=== PATIENT | male | born 1955 | race Caucasian/White ===

== ENCOUNTER 2017-04-14 17:35 | Emergency (ER) | payer BC ==
[~2017-04-14] VITALS: Ht 188 cm; Wt 93.2 kg
[~2017-04-14 17:35] MED LIST: NEXIUM 20MG CAP20 MG PO; VERAPAMIL240 MG PO
[2017-04-14 17:39] VITALS: TEMP 97.6
[2017-04-14 18:47] LABS: BASO # 0.1 (0.0-0.2); BASO % 0.6 % (0.0-2.0); EOS # 0.2 (0.0-0.7); EOS % 1.7 % (0-4.0); GRAN # 6.2 (1.4-6.5); GRAN % 72.7 % (42.2-75.2); HEMATOCRIT 41.8 % (42.0-52.0); HEMOGLOBIN 14.7 g/dl (13.5-18.0); LYMPH # 1.5 (1.2-3.4); LYMPH % 17.1 % (20.0-51.0); MEAN CELL VOLUME 86 fl (80.0-100.0); MEAN CORPUSCULAR HEMOGLOBIN 30 pg (27.0-31.0); MEAN CORPUSCULAR HGB CONC 35 g/dl (33.0-37.0); MEAN PLATELET VOLUME 10.9 fl (7.4-10.4); MONO # 0.7 (0.1-0.6); MONO % 7.6 % (1.7-9.3); PLATELET COUNT 203 K/mm3 (130-400); RED BLOOD COUNT 4.86 M/mm3 (4.20-5.60); REDCELL DISTRIBUTION WIDTH-CV 12.3 % (11.5-14.5); WHITE BLOOD COUNT 8.6 K/mm3 (4.8-10.8)
[2017-04-14 18:53] LABS: ANION GAP 10 mmol/L (7-16); BLOOD UREA NITROGEN 14 mg/dL (9-20); CARBON DIOXIDE 23 mmol/L (22-30); CHLORIDE 104 mmol/L (98-107); CREATININE, serum 0.84 mg/dL (0.66-1.25); GLUCOSE 91 mg/dL (74-106); POTASSIUM 3.8 mmol/L (3.4-5.0); SODIUM 136 mmol/L (137-145)
[2017-04-14 19:07] LABS: TROPONIN-I < 0.012 ng/mL (0.000-0.034)
[2017-04-14] MEDS ORDERED: VERELAN240 MG PO (20:38)
[2017-04-14] MEDS ORDERED: SINEMET 25/101 UDTAB PO (20:40)
[2017-04-14] MEDS ORDERED: LEXAPRO 5MG5 MG PO (20:42)
[2017-04-14] MEDS ORDERED: REVATIO20 MG PO (20:42)
[2017-04-14 21:37] VITALS: BP 170/75; PULSE 62
== END 2017-04-14 21:15 | disposition short-term general hospital (02) ==
LOC: COL.ER 17:35
PROVIDERS: Emergency Medicine
DX: R55 Syncope and collapse (principal); R00.1 Bradycardia, unspecified; K21.9 Gastro-esophageal reflux disease without esophagitis; G20 Parkinson's disease; I10 Essential (primary) hypertension; Z85.46 Personal history of malignant neoplasm of prostate; Z90.49 Acquired absence of other specified parts of digestive tract; Z90.79 Acquired absence of other genital organ(s)
CPT/HCPCS: J7030